=== PATIENT | male | born 1980 | race Caucasian/White ===

== ENCOUNTER 2019-02-21 20:54 | Inpatient (IN) | payer OTHER ==
[2019-02-21] MEDS ORDERED: BISACODYL 10 MG SUPP PR (23:00)
[2019-02-21] MEDS ORDERED: LACTULOSE 30ML CUP PO (23:00)
[2019-02-21] MEDS: LEVETIRACETAM 750 MG TAB PO (23:43)
[2019-02-21] MEDS: ATORVASTATIN 40 MG TAB PO (23:43)
[2019-02-21 23:57] LABS: ADD UMIC NO; UR ASCORBIC ACID NEGATIVE (NEGATIVE); UR BILIRUBIN (Dip) NEGATIVE (NEGATIVE); UR BLOOD (Dip) NEGATIVE (NEGATIVE); UR CLARITY CLEAR (CLEAR); UR COLOR YELLOW (YELLOW); UR GLUCOSE (Dip) NEGATIVE (NEGATIVE); UR KETONES (Dip) NEGATIVE (NEGATIVE); UR LEUKOCYTE ESTERASE (Dip) NEGATIVE Leu/ul (NEGATIVE); UR NITRITE (Dip) NEGATIVE (NEGATIVE); UR SPECIFIC GRAVITY (Dip) 1.029 (1.003-1.030); UR TOTAL PROTEIN (Dip) NEGATIVE (NEGATIVE); UR UROBILINOGEN (Dip) NEGATIVE (NEGATIVE)
[2019-02-22] MEDS: PANTOPRAZOLE (EC) 40 MG TAB PO (06:40)
[2019-02-22 07:13] LABS: ADD MAN DIFF? NO
[2019-02-22 07:18] LABS: ABNORMAL IP MESSAGE 1; BASOPHIL # 0.1 10^3/ul (0.0-0.1); EOSINOPHILS # 0.2 10^3/ul (0.0-0.5); HEMATOCRIT 30.5 % (42.0-52.0); HEMOGLOBIN 8.2 g/dl (14.0-18.0); LYMPHOCYTES # 1.7 10^3/ul (0.8-2.9); LYMPHOCYTES % 23.7 % (15.0-51.0); MEAN CORPUSCULAR HEMOGLOBIN 17.4 pg (29.0-33.0); MEAN CORPUSCULAR HGB CONC 26.9 g/dl (32.0-37.0); MEAN CORPUSCULAR VOLUME 64.9 fl (82.0-101.0); MEAN PLATELET VOLUME 10.5 fl (7.4-10.4); MONOCYTE # 0.6 10^3/ul (0.3-0.9); NEUTROPHIL # 4.6 10^3/ul (1.6-7.5); PLATELET COUNT 436 10^3/UL (140-415); POSITIVE DIFF @See below; RED CELL DISTRIBUTION WIDTH 19.9 % (11.5-14.5)
[2019-02-22 07:18] LABS: WHITE BLOOD COUNT 7.3 10^3/ul (4.8-10.8)
[2019-02-22 07:37] LABS: ALANINE AMINOTRANSFERASE 41 IU/L (13-69); ALBUMIN 4.3 g/dl (3.3-4.9); ALBUMIN/GLOBULIN RATIO 1.26; ALKALINE PHOSPHATASE 100 IU/L (42-121); ANION GAP 10 (5-13); ASPARTATE AMINO TRANSFERASE 43 IU/L (15-46); BILIRUBIN,INDIRECT 0.4 mg/dl (0-1.1); BILIRUBIN,TOTAL 0.4 mg/dl (0.2-1.3); BLOOD UREA NITROGEN 18 mg/dl (7-20); CALCIUM 9.3 mg/dl (8.4-10.2); CARBON DIOXIDE 25 mmol/L (21-31); CHLORIDE 104 mmol/L (97-110); Estimated GFR > 60 mL/min (>60); GLUCOSE 90 mg/dl (70-220); POTASSIUM 4.4 mmol/L (3.5-5.1); SODIUM 139 mmol/L (135-144); TOTAL PROTEIN 7.7 g/dl (6.1-8.1)
[2019-02-22] MEDS: LEVETIRACETAM 750 MG TAB PO ×2 (08:44→20:39)
[2019-02-22] MEDS: DOCUSATE SODIUM 100 MG CAP PO ×2 (08:44→20:39)
[2019-02-22] MEDS: ASPIRIN (EC) 81 MG TAB PO (08:44)
[2019-02-22] MEDS: ATORVASTATIN 40 MG TAB PO (20:39)
[2019-02-22] MEDS: SENNA TAB PO (20:39)
[2019-02-22] MEDS: MAGNESIUM HYDROXIDE 30ML CUP PO (20:39)
[2019-02-23] MEDS: ESOMEPRAZOLE 20 MG PO (07:03)
[2019-02-23 08:11] LABS: IRON 20 ug/dl (35-150)
[2019-02-23 08:21] LABS: % IRON SATURATION 5 % SAT (22-52); TOTAL IRON BINDING CAPACITY 402 ug/dl (241-421)
[2019-02-23] MEDS: DOCUSATE SODIUM 100 MG CAP PO ×2 (09:00→20:49)
[2019-02-23] MEDS: LEVETIRACETAM 750 MG TAB PO ×2 (09:02→20:49)
[2019-02-23] MEDS: ASPIRIN (EC) 81 MG TAB PO (09:02)
[2019-02-23] MEDS: SOD FERRIC GLUC COMPLX 125 MG in SOD CHLORIDE 0.9% 100 ML IVPB (13:15)
[2019-02-23] MEDS: SENNA TAB PO (20:49)
[2019-02-23] MEDS: ATORVASTATIN 40 MG TAB PO (20:49)
[2019-02-24] MEDS: ESOMEPRAZOLE 20 MG PO (06:36)
[2019-02-24] MEDS: ASPIRIN (EC) 81 MG TAB PO (08:44)
[2019-02-24] MEDS: DOCUSATE SODIUM 100 MG CAP PO ×2 (08:44→21:00)
[2019-02-24] MEDS: LEVETIRACETAM 750 MG TAB PO ×2 (08:44→21:03)
[2019-02-24] MEDS: SOD FERRIC GLUC COMPLX 125 MG in SOD CHLORIDE 0.9% 100 ML IVPB (13:54)
[2019-02-24] MEDS: SENNA TAB PO (21:00)
[2019-02-24] MEDS: ATORVASTATIN 40 MG TAB PO (21:03)
[2019-02-25] MEDS: ESOMEPRAZOLE 20 MG PO ×2 (07:05→10:59)
[2019-02-25] MEDS: DOCUSATE SODIUM 100 MG CAP PO ×2 (08:41→20:43)
[2019-02-25] MEDS: ASPIRIN (EC) 81 MG TAB PO (08:42)
[2019-02-25] MEDS: LEVETIRACETAM 750 MG TAB PO ×2 (08:42→20:43)
[2019-02-25 11:05] LABS: ADD MAN DIFF? NO
[2019-02-25 11:08] LABS: ABNORMAL IP MESSAGE 1; BASOPHIL # 0.1 10^3/ul (0.0-0.1); BASOPHILS % 1.1 % (0.0-2.0); EOSINOPHILS # 0.2 10^3/ul (0.0-0.5); EOSINOPHILS % 2.2 % (0.0-7.0); HEMATOCRIT 32.5 % (42.0-52.0); HEMOGLOBIN 8.9 g/dl (14.0-18.0); LYMPHOCYTES # 1.9 10^3/ul (0.8-2.9); LYMPHOCYTES % 23.8 % (15.0-51.0); MEAN CORPUSCULAR HEMOGLOBIN 18.2 pg (29.0-33.0); MEAN CORPUSCULAR HGB CONC 27.4 g/dl (32.0-37.0); MEAN CORPUSCULAR VOLUME 66.6 fl (82.0-101.0); MEAN PLATELET VOLUME 10.8 fl (7.4-10.4); MONOCYTE # 0.6 10^3/ul (0.3-0.9); MONOCYTES % 7.1 % (0.0-11.0); NEUTROPHIL # 5.3 10^3/ul (1.6-7.5); NEUTROPHILS % 64.9 % (39.0-77.0); PLATELET COUNT 583 10^3/UL (140-415); POSITIVE DIFF @See below; RED BLOOD COUNT 4.88 10^6/ul (4.70-6.10); RED CELL DISTRIBUTION WIDTH 20.5 % (11.5-14.5)
[2019-02-25 11:08] LABS: WHITE BLOOD COUNT 8.2 10^3/ul (4.8-10.8)
[2019-02-25] MEDS: SOD FERRIC GLUC COMPLX 125 MG in SOD CHLORIDE 0.9% 100 ML IVPB (12:44)
[2019-02-25] MEDS: SENNA TAB PO (20:43)
[2019-02-25] MEDS: ATORVASTATIN 40 MG TAB PO (20:43)
[2019-02-26] MEDS: ESOMEPRAZOLE 20 MG PO (06:33)
[2019-02-26] MEDS: LEVETIRACETAM 750 MG TAB PO (08:56)
[2019-02-26] MEDS: ASPIRIN (EC) 81 MG TAB PO (08:56)
[2019-02-26] MEDS: DOCUSATE SODIUM 100 MG CAP PO (09:00)
[2019-02-26] MEDS: ACETAMINOPHEN 325 MG TAB PO (09:04)
[2019-02-26] MEDS: SOD FERRIC GLUC COMPLX 125 MG in SOD CHLORIDE 0.9% 100 ML IVPB (13:00)
== END 2019-02-26 13:25 | disposition home health service (06) | DRG 57 ==
LOC: VRC 02-23 17:00
DX: I69.354 Hemiplegia and hemiparesis following cerebral infarction affecting left non-dominant side (principal); G40.909 Epilepsy, unspecified, not intractable, without status epilepticus; D64.9 Anemia, unspecified; E78.5 Hyperlipidemia, unspecified; E66.9 Obesity, unspecified; Z68.35 Body mass index [BMI] 35.0-35.9, adult; D69.6 Thrombocytopenia, unspecified; Z87.19 Personal history of other diseases of the digestive system; I69.391 Dysphagia following cerebral infarction; D50.9 Iron deficiency anemia, unspecified; D47.3 Essential (hemorrhagic) thrombocythemia; F15.11 Other stimulant abuse, in remission
CPT/HCPCS: 80053; 81003; 83540; 85025; 87081; 87086; 92507; 92523; 97110; 97116; 97163; 97167; 97530; 97535; 97542